=== PATIENT | female | born 1945 | race African-American/Black ===

== ENCOUNTER → 2017-11-26 | Outpatient (CLI) | payer OTHER | END | disposition home or self-care (01) | LOC: US 08:58 | DX: I08.1 Rheumatic disorders of both mitral and tricuspid valves (principal); M79.604 Pain in right leg; M79.605 Pain in left leg; M79.89 Other specified soft tissue disorders; R60.0 Localized edema; I27.20 Pulmonary hypertension, unspecified | CPT/HCPCS: 93306; 93970 ==

== ENCOUNTER 2018-02-27 08:02 | Outpatient (CLI) | payer OTHER ==
[2018-02-27] VITALS (10 sets, daily range): BP systolic 135–190; BP diastolic 0–85
[~2018-02-27] VITALS: Ht 160 cm; Wt 136.1 kg
[~2018-02-27 08:02] MED LIST: ACET325T9 PO; ALLO100T PO; ALPR0.5T6 PO; ASPI-482 PO; ATOR10TA60 PO; BIOT25006 PO; CETI10TA16 PO; CYCL10TA2 PO; DULO60CA6 PO; ESOM40CA PO; FURO-69 PO; HYDR50TA6 PO; INSU100I13 SQ; INSU100I17 SQ; METO10TA81 PO; MONT10TA9 PO; MULT-658 PO; MULT1TAB52 PO; NYST1POW2 PO; OMEP20CA5 PO; SENN1TAB15 PO; SIMV10TA3 PO; VALS1TAB8 PO
[2018-02-27] MEDS ORDERED: DULO60CA44 PO (08:26)
[2018-02-27] MEDS ORDERED: LOSA50TA7 PO (08:26)
[2018-02-27] MEDS ORDERED: CA C1TAB63 PO (08:26)
[2018-02-27] MEDS ORDERED: CARV3.122 PO (08:26)
[2018-02-27] MEDS ORDERED: MONT10TA9 PO (08:26)
[2018-02-27] MEDS ORDERED: BACL10TA PO (08:26)
[2018-02-27] MEDS ORDERED: FLUT9.9S NS (08:26)
[2018-02-27 08:43] LABS: HEMATOCRIT 35.1 % (36.0-47.0); HEMOGLOBIN 12.1 g/dL (12.0-15.5); RED BLOOD COUNT 3.8 x10^6/uL (3.50-5.40); RED CELL DISTRIBUTION WIDTH 13.3 % (11.5-14.5); WHITE BLOOD COUNT 6.9 x10^3/uL (4.0-11.0)
[2018-02-27 08:52] LABS: PROTHROMBIN TIME PATIENT 13.6 SEC (11.7-14.0)
[2018-02-27 08:55] LABS: CREATININE 0.8 mg/dL (0.6-1.0); GFR 85.6; POTASSIUM 4.6 mmol/L (3.5-5.1)
[2018-02-27] MEDS ORDERED: IOHEXOL 300 MG/ML 100ML VIAL. ONE (10:04)
[2018-02-27] MEDS ORDERED: LIDOCAINE 1% PF 2 ML VIAL. ONE (10:04)
[2018-02-27] MEDS ORDERED: fentaNYL PF VIAL 100 MCG/2 ML VIAL ONE (10:12)
[2018-02-27] MEDS ORDERED: NITROGLYCERIN 200 MCG/2 ML SYRINGE FOR CATH/VASC LAB. ONE (10:12)
[2018-02-27] MEDS ORDERED: VERAPAMIL 5 MG/2 ML VIAL. ONE (10:12)
[2018-02-27] MEDS ORDERED: HEPARIN for IV BOLUS 10,000 UNIT/10 ML VIAL. ONE (10:12)
[2018-02-27] MEDS ORDERED: MIDAZOLAM HCL/PF 2 MG/2 ML VIAL. ONE (10:12)
--- NOTE | 2018-02-27 10:43 | PDOC ---
MODERATE SEDATION ASSESSMENT RISKS/ALTERNATIVES Risks/Alternatives Risks and alternatives of this type of sedation and procedure discussed with: RISK/ALTERNATIVES: Patient H & P ON CHART H & P H & P on chart and reviewed for co-morbid conditions and appropriate labs. H&P ON CHART: Yes STATUS PREG STATUS ASSESSED: Yes MEDS/ALLERGIES REVIEWED Meds/Allergies Reviewed Medications and Allergies including time and route of recently administered narcotics and sedatives. MEDS/ALLERGIES REVIEWED: Yes ASA RATING ASA RATING: II AIRWAY ASSESSMENT Airway Assessment Airway patency, oral function limitations, presence of caps, crowns, dentures, partials, and ability to extend neck assessed. AIRWAY ASSESSMENT: Yes MALLAMPATI SCORE MALLAMPATI SCORE: II PRE-SEDATION ASSESSMENT PRE-SEDATION ASSESSMENT: Yes EVA VALENTIN MD Feb 27, 2018 10:43
[2018-02-27] MEDS ORDERED: IOHEXOL 300 MG/ML 100ML VIAL. IART ONE (11:30)
[2018-02-27] MEDS ORDERED: MIDAZOLAM HCL/PF 2 MG/2 ML VIAL. IV ONE (11:30)
[2018-02-27] MEDS ORDERED: NITROGLYCERIN 200 MCG/2 ML SYRINGE FOR CATH/VASC LAB. IART ONE (11:30)
[2018-02-27] MEDS ORDERED: VERAPAMIL 5 MG/2 ML VIAL. IART ONE (11:30)
[2018-02-27] MEDS ORDERED: HEPARIN for IV BOLUS 10,000 UNIT/10 ML VIAL. IART ONE (11:30)
[2018-02-27] MEDS ORDERED: LIDOCAINE 1% PF 2 ML VIAL. INJ ONE (11:30)
[2018-02-27] MEDS ORDERED: fentaNYL PF VIAL 100 MCG/2 ML VIAL IV ONE (11:30)
[2018-02-27] MEDS ORDERED: IV NORMAL SALINE 1000ML BAG 1,000 ML IV SCH (11:38)
[2018-02-27] MEDS ORDERED: NITROGLYCERIN SUBLINGUAL 0.4 MG BOTTLE OF 25. SL PRN (11:45)
[2018-02-27] MEDS ORDERED: LOSARTAN POTASSIUM 50 MG TABLET. PO ONE (11:45)
[2018-02-27] MEDS ORDERED: 0.9 % SODIUM CHLORIDE 10 ML DISP.SYRIN. IV PRN (11:45)
[2018-02-27] MEDS ORDERED: CARVEDILOL 3.125 MG TABLET. PO ONE (11:45)
--- NOTE | 2018-02-27 14:08 | CARD ---
MR#: [id number] Date of Study: 02/27/2018 Ordering Physician: EVA TRACEY, Referring Physician: EVA TRACEY, Tech: Cindy Rebolledo RTR APPROVED REPORT Procedures Selective coronary angiogram The patient is a 73-year-old female with history of diabetes and hypertension. She has had progressiv shelbie declining LV systolic function with her most recent echocardiogram showing an ejection fraction o f 25-30%. In this setting cardiac catheterization was recommended to exclude underlying coronary norah ry disease as the etiology of her cardiomyopathy. Risks and benefits were discussed. The patient agr eed to proceed with catheterization. After informed consent was obtained the area of the right radial artery was prepared in the usual man ner with Betadine, sterile draping and local anesthetic after a normal Jae's test. A quick cath dev ice was used to enter the right radial artery, a wire placed the 6 Arabic sheath placed over the wire . The standard mixture of heparin and anti-spasm medications were administered. Using a J-wire a Kwesi y catheter was advanced to the ascending aorta. This was unable to engage the coronaries. Therefore u sing abxc-cmp-thox exchanges a 6 Arabic JL 3.5 diagnostic catheter was placed to the ascending aorta. It was used to engage the left coronary artery system and sequential injections in various views wer e obtained. Again with an qnrk-vgk-gohe exchange, aJR4 diagnostic catheter was placed to the ascendin g aorta. It was used to engage the right coronary artery and sequential injections in various views w ere obtained. The catheter was removed from the patient. The sheath was removed and hemostasis obtain ed as per the protocol with a TR band. The patient was moved to the holding area in stable conditio n. Findings. Hemodynamics. Aortic root pressure of 156/86. Coronaries. Left main. The left main was a normal-size vessel. It had no lesions. Left anterior descending. The LAD was a moderate size vessel with normal distribution. It had no lesi ons. Left circumflex. The left circumflex is a moderate to moderately large vessel. It had no lesions. Right coronary artery. The right coronary was a moderate size vessel. It had no lesions. <Conclusion> No angiographic evidence of significant coronary artery disease. Signed by : Eva Tracey MD Electronically Approved : 02/27/2018 14:07:38
== END 2018-02-27 14:29 | disposition home or self-care (01) ==
LOC: CCL 08:02
PROVIDERS: ATTEND Internal Medicine Cardiovascular Disease
DX: I42.9 Cardiomyopathy, unspecified (principal); I10 Essential (primary) hypertension; E11.9 Type 2 diabetes mellitus without complications; Z79.4 Long term (current) use of insulin; Z79.899 Other long term (current) drug therapy; Z79.01 Long term (current) use of anticoagulants; Z88.8 Allergy status to other drugs, medicaments and biological substances
CPT/HCPCS: 36415; 80048; 85027; 85610; 85730; 93454; 99152; 99153; C1769; C1892; J1644; J2250; J3010; J3490; Q9967

== ENCOUNTER → 2018-04-29 | Outpatient (CLI) | payer OTHER ==
[2018-02-27 14:00] VITALS: BP 176/67
[~2018-04-29] MED LIST changes: +BACL10TA PO; +CA C1TAB63 PO; +CARV3.1210 PO; +DULO60CA44 PO; +FLUT9.9S NS; +LOSA-73 PO
--- NOTE | 2018-04-29 13:44 | CARD ---
MR#: [id number] Date of Study: 04/29/2018 Ordering Physician: EVA TRACEY, Referring Physician: EVA TRACEY, Tech: Gris Schafer DEONDRE APPROVED REPORT EXAM: Two-dimensional and M-mode echocardiogram with Doppler and color Doppler. Other Information Quality : PoorHR: 83bpm Rhythm : NSRTechnically limited study due to body habitus. INDICATION Cardiomyopathy 2D DIMENSIONS RVDd2.5 (2.9-3.5cm)IVSd1.3 (0.7-1.1cm) Aortic Root(2D)3.0 (2.0-3.7cm)LVDd4.4 (3.9-5.9cm) LVOT Diameter2.1 (1.8-2.4cm)PWd1.0 (0.7-1.1cm) IVSs1.1 (0.8-1.2cm)LVDs2.9 (2.5-4.0cm) FS (%) 35.1 %SV56.4 ml M-Mode DIMENSIONS Left Atrium(MM)3.63 (2.5-4.0cm)Aortic Root3.03 (2.2-3.7cm) Aortic Valve AoV Peak Cameron.97.2cm/sAoV VTI23.0cm AO Peak GR.3.8mmHgLVOT Peak Cameron.74.3cm/s LVOT VTI 24.81cmAO Mean GR.2mmHg GUERLINE (VMAX)3.60jl5MCP (VTI)3.00cm2 Mitral Valve MV E Vzhlwthv95.7cm/sMV DECEL [id number] MV A Spnzfvwh117.2cm/sMV ERX24ga E/A Ratio0.8MVA (PHT)2.95cm2 Pulmonary Valve PV Peak Cxwzeoqy697.8cm/sPV Peak Grad.4mmHg Tricuspid Valve TR P. Aawtginq358zz/sRAP BALYSXOX4yqHk TR Peak Gr.22opRyWKLJ45kzEp LEFT VENTRICLE The left ventricle is normal size. There is borderline concentric left ventricular hypertrophy. The l eft ventricular systolic function is normal and the ejection fraction is within normal range. The Eje ction Fraction is 50-55%. There is normal LV segmental wall motion. Transmitral Doppler flow pattern is abnormal. RIGHT VENTRICLE The right ventricle is normal size. There is normal right ventricular wall thickness. The right ventr icular systolic function is normal. ATRIA The left atrium size is normal. The right atrium size is normal. The interatrial septum is intact wit h no evidence for an atrial septal defect or patent foramen ovale as noted on 2-D or Doppler imaging. AORTIC VALVE The aortic valve is probably trileaflet. The aortic valve is normal in structure and function. Dopple r and Color Flow revealed no significant aortic regurgitation. There is no significant aortic valvula r stenosis. MITRAL VALVE The mitral valve is normal in structure and function. There is no evidence of mitral valve prolapse. There is no mitral valve stenosis. Doppler and Color-flow revealed trace to mild mitral regurgitation . TRICUSPID VALVE The tricuspid valve is not well visualized. Doppler and Color Flow revealed trace tricuspid regurgita tion. The PA pressure was estimated at 29 mmHg. There is no tricuspid valve prolapse or vegetation. T here is no tricuspid valve stenosis. PULMONIC VALVE Pulmonic valve not well visualized. GREAT VESSELS The aortic root is normal in size. The ascending aorta is normal in size. PERICARDIAL EFFUSION There is no evidence of significant pericardial effusion. Critical Notification Critical Value: No <Conclusion> The left ventricle is normal size. The left ventricular systolic function is normal and the ejection fraction is within normal range. The Ejection Fraction is 50-55%. There is borderline concentric left ventricular hypertrophy. There is no significant aortic valvular stenosis. Doppler and Color Flow revealed no significant aortic regurgitation. Doppler and Color-flow revealed trace to mild mitral regurgitation. Doppler and Color Flow revealed trace tricuspid regurgitation. The PA pressure was estimated at 29 mmHg. Signed by : Eva Tracey MD Electronically Approved : 04/29/2018 13:42:57
== END | disposition home or self-care (01) ==
LOC: ECHO 11:05
PROVIDERS: ATTEND Internal Medicine Cardiovascular Disease
DX: I51.7 Cardiomegaly (principal)
CPT/HCPCS: 93306